=== PATIENT | female | born 1995 | race Two or more races ===

== ENCOUNTER 2022-12-17 09:09 | Emergency (ER) | payer OTHER, SELFPAY ==
[2022-12-17 09:30] VITALS: BP 122/78; PULSE 90; RESP 20; TEMP 36.8; O2SAT 97; BMI 22.8
--- NOTE | 2022-12-17 09:35 | ED_ITS ---
HPI - Dental/Oral General Chief complaint: Dental/Oral Stated complaint: facial swelling Time Seen by Provider: 12/17/22 09:35 Source: patient Mode of arrival: ambulatory Limitations: no limitations History of Present Illness HPI Narrative: 27 yo female presents to the ER for evaluation of left lower dental pain and swelling for the last week. She has poor dentition, does not have a dentist. She denies any known injury. She reports the last 3 or 4 days the pain has been gradually getting worse. She is taking Aleve around the clock with only brief and minor improvement. She denies any fever or chills. She has pain eating on that side. No difficulty opening or closing her jaw. No pain or swelling into the neck MD Complaint: tooth pain Location: Tooth # (16) Onset (ago): week(s) (1) Duration: worsening Severity: severe Severity scale (1-10): 10 Relieving factors: NSAIDs Exacerbating factors: chewing Context: poor dental care Treatment prior to arrival: oral analgesic Related Data Previous Rx's Medication Instructions Recorded amoxicillin 875 mg-potassium 1 tab PO BID #20 tabs 12/17/22 clavulanate 125 mg tablet chlorhexidine gluconate 0.12 % 15 ml buccal BID #473 mL 12/17/22 mouthwash (Peridex) ibuprofen 600 mg tablet 600 mg PO Q8H PRN pain #20 tabs 12/17/22 tramadol 50 mg tablet 50 mg PO TID PRN severe pain 12/17/22 (scale score 7-10) #8 tabs Allergies Allergy/AdvReac Type Severity Reaction Status Date / Time No Known Allergies Allergy Verified 12/17/22 09:33 Review of Systems Review of Systems: Yes all other systems are reviewed and are negative PMFSH Social History Social History Advance Directives: No Physical Exam Vital Signs: Vital Signs: Last Vital Signs Temp 98.3 F 12/17/22 09:30 Pulse 90 12/17/22 09:30 Resp 20 12/17/22 09:30 BP 122/78 12/17/22 09:30 Pulse Ox 97 12/17/22 09:30 O2 Del Method Room Air 12/17/22 09:30 BMI result Body Mass Index 22.8 Appearance: Alert. Oriented X3. No acute distress. HEENT: left lower facial swelling. no trismus. poor dentition, left lower molar with broken tooth with decay, associated gingival swelling and tenderness, there is a partially exposed 3rd molar. Neck: Normal inspection, no submandibular swelling. CVS: Normal heart rate and rhythm. Pulses normal. Respiratory: No respiratory distress. Skin: Skin warm and dry. Normal skin color. Normal skin turgor. No rashes. Extremities: normal inspection x4, normal range of motion. Neuro: Oriented X 3. No motor deficit. No sensory deficit. Medical Decision Making Medical Decision Making [facility] Narrative: 27-year-old otherwise healthy female presents the ER for evaluation of left lower dental pain for the last 1 week. Exam and clinical presentation are consistent with a dental abscess. There is partial exposure of left lower with some to, no palpable or fluctuant abscess to drain today in the emergency depart ment. Patient will be discharged with oral antibiotics, pain control, and follow-up with dental as soon as possible. Patient expressed understanding and return precautions were discussed. Stable for discharge home. Differential Diagnosis Differential Diagnoses: The differential diagnosis associated with the presentation includes Dental abscess, toothache, Uzair's angina, dental trauma Prescription Management I considered prescription management with: Pain Medication and Antibiotic Social Determinants Patient?s care significantly limited by Social Determinants of Health including: Other Social Determinant of Health Recently moved to [place], has no care here. Critical Care Time Critical Care Time Critical Care Time: No Discharge Plan Discharge Clinical Impression: Dental abscess Patient Disposition: Home, Self-Care Instructions: Dental Abscess (ED) Additional Instructions: You have a dental abscess. Take the prescribed antibiotic for this, start them right away, do not miss any doses in complete the entire course. Take the prescribed ibuprofen around the clock, take with food. Also recommend adding 975 mg of Tylenol every 6-8 hours. Take the prescribed tramadol for severe pain only. Do not drive after taking this medication. It is important that you follow-up with a dentist as soon as possible. Call the dentist provided on the list given to you. If you develop new or worsening symptoms call 911 or come back to the ER for further evaluation. Prescriptions: New amoxicillin-pot clavulanate 875-125 mg tablet 1 tab PO BID Qty: 20 0RF ibuprofen 600 mg tablet 600 mg PO Q8H PRN (Reason: pain) Qty: 20 0RF tramadol 50 mg tablet 50 mg PO TID PRN (Reason: severe pain (scale score 7-10)) Qty: 8 0RF chlorhexidine gluconate [Peridex] 0.12 % mouthwash 15 ml buccal BID Qty: 473 0RF Stand Alone Forms: Work/School Release
== END 2022-12-17 10:17 | disposition home or self-care (01) ==
PROVIDERS: Emergency Provider Emergency Medicine
DX: K04.7 Periapical abscess without sinus (principal); K08.89 Other specified disorders of teeth and supporting structures
CPT/HCPCS: 99282; 99283

== ENCOUNTER 2025-04-19 14:23 | Emergency (ER) | payer SELFPAY ==
[2025-04-19 14:34] VITALS: BP 121/60; PULSE 100; RESP 16; TEMP 36.9; O2SAT 100; BMI 50.0
--- NOTE | 2025-04-19 14:37 | ED.GENADULT ---
HPI - General Adult General Chief complaint: General Medical Stated complaint: STD check Time Seen by Provider: 04/19/25 14:55 Source: patient, RN notes reviewed and old records reviewed Mode of arrival: ambulatory Limitations: no limitations History of Present Illness ED Provider: Paul GIL narrative: 29-year-old female presents for evaluation of a chlamydia exposure. Her sexual partner apparently had intercourse with another individual who was positive for chlamydia. The patient denies any pain, vaginal discharge pain She is on her menstrual cycle Related Data Previous Rx's ?Medication ?Instructions ?Recorded amoxicillin 875 mg-potassium 1 tab PO BID #20 tabs 12/17/22 clavulanate 125 mg tablet chlorhexidine gluconate 0.12 % 15 ml buccal BID #473 mL 12/17/22 mouthwash (Peridex) ibuprofen 600 mg tablet 600 mg PO Q8H PRN pain #20 tabs 12/17/22 tramadol 50 mg tablet 50 mg PO TID PRN severe pain 12/17/22 (scale score 7-10) #8 tabs doxycycline hyclate 100 mg tablet 100 mg PO BID #19 tabs 04/19/25 Allergies Allergy/AdvReac Type Severity Reaction Status Date / Time No Known Allergies Allergy Verified 04/19/25 14:36 Review of Systems Gastrointestinal: Gastrointestinal: Denies abdominal pain, Denies nausea and Denies vomiting Genitourinary: Genitourinary: Denies pelvic pain, Denies vaginal discharge and Denies vaginal odor Comments: The patient is currently on her menstrual cycle PMFSH Social History Social History Advance Directives: No Advance Directives Information Provided: Yes Physical Exam ED Vital Signs: Vital Signs - 24 hr 04/19/25 14:34 Temperature 98.4 F Pulse Rate 100 Respiratory Rate 16 Blood Pressure 121/60 Pulse Oximetry 100 Oxygen Delivery Method Room Air BMI result Body Mass Index 50.0 Const General: healthy appearing, comfortable, no acute distress, alert and awake Nutritional Appearance: well nourished Orientation/consciousness: patient oriented x3 HENMT Head: Yes normocephalic and Yes atraumatic Eyes Eyelids: Yes eyelids normal Conjunctivae: conjunctivae normal Sclerae: sclerae normal Corneas: corneas normal Pupils: Equal, round and reactive pupils present EOM: EOMs intact bilaterally Neck Neck: Yes full ROM Resp Effort & Inspection: normal respiratory effort, able to speak in complete sentences and not labored Skin General skin exam: elasticity normal Neuro General: patient oriented x3 Cranial nerves: Yes CN's II-XII intact bilaterally, Yes Equal, round and reactive pupils present and Yes Bilaterally intact EOM present Cognition (Neuro): normal cognition Extrem Other: Moving all extremities well without any obvious deformities Course Course Course Narrative: RME, this is a rapid medical exam performed by Otis Miller please refer to primary provider for complete H&P- 29-year-old female presents for evaluation of chlamydia exposure. She had denies any sinus for pain she is currently on her menstrual cycle. She states that her sexual partner told her that the intercourse with somebody who was positive for chlamydia. Reevaluation(s) Reevaluation #1: 9:25 AM 04/21/2025 (Sosa Rachel PA-C): Patient tested positive for chlamydia, negative for gonorrhea. Treated appropriately. Left voice mail on machine. 11:18 AM 04/21/2025 (Sosa Rachel PA-C): Patient called back, discussed a positive test result. No questions or concerns. Medications Administered Discontinued Medications Generic Name Dose Route Start Last Admin Trade Name Freq PRN Reason Stop Dose Admin Ceftriaxone Sodium 500 mg/ 0 mg 04/19/25 14:35 04/19/25 15:02 Lidocaine HCl 1 ml IM 04/19/25 14:36 1 kit ONCE ONE Administration Doxycycline Monohydrate 100 mg 04/19/25 14:35 04/19/25 15:02 Doxycycline Monohydrate 100 Mg Capsule PO 04/19/25 14:36 100 mg ONCE ONE Administration Medical Decision Making Medical Decision Making [facility] Narrative: 29-year-old female presents for evaluation of chlamydia exposure. The patient will be tested for gonorrhea chlamydia and we will treat her empirically. She currently is asymptomatic. Vitals are stable Differential Diagnosis Differential Diagnoses: The differential diagnosis associated with the presentation includes Gonorrhea Chlamydia STI Urethritis Lab Data Labs: Lab Results 04/19/25 Range/Units 14:46 Ur N gonorrhoeae DNA (PCR) NOT DETECTED (Not Detect.) Ur Chlamydia DNA (PCR) DETECTED A (Not Detect.) Discharge Plan Discharge Clinical Impression: Exposure to chlamydia Patient Disposition: Home, Self-Care Instructions: Chlamydia (ED) Additional Instructions: You were tested for gonorrhea and chlamydia. We will call you if the results are positive. You were also treated for both. You should continue taking the doxycycline for a total of 10 days You should not have sexual intercourse until you complete your antibiotics Prescriptions: New doxycycline hyclate 100 mg tablet 100 mg PO BID Qty: 19 0RF No Action amoxicillin-pot clavulanate 875-125 mg tablet 1 tab PO BID Qty: 20 0RF ibuprofen 600 mg tablet 600 mg PO Q8H PRN (Reason: pain) Qty: 20 0RF tramadol 50 mg tablet 50 mg PO TID PRN (Reason: severe pain (scale score 7-10)) Qty: 8 0RF chlorhexidine gluconate [Peridex] 0.12 % mouthwash 15 ml buccal BID Qty: 473 0RF Interventions: ED Discharge Assessment Last Done: 04/19/25 15:36 Discharge Date/Time: 04/19/25 15:37 Print Language: Frisian
[2025-04-19] MEDS: cefTRIAXone sodium 500 MG, Lidocaine HCl 1 % MPF 1 ML IM (15:02)
[2025-04-19 15:36] VITALS: BP 121/60; PULSE 100; RESP 16; TEMP 36.9; O2SAT 100
[2025-04-19 16:25] LABS: CT PCR Urine DETECTED (Not Detect.); NG PCR Urine NOT DETECTED (Not Detect.)
== END 2025-04-19 15:37 | disposition home or self-care (01) ==
PROVIDERS: Physician Assistant; Emergency Provider Emergency Medicine Emergency Medical Services
DX: Z20.2 Contact with and (suspected) exposure to infections with a predominantly sexual mode of transmission (principal)
CPT/HCPCS: 87491; 87591; 96372; 99282; 99284; J0696; J2003